=== PATIENT | female | born 1950 | race Caucasian/White ===

== ENCOUNTER 2023-10-16 09:00 | Inpatient (IN) | payer OTHER ==
[~2023-10-16] VITALS: Ht 165.1 cm; Wt 65.5 kg
[~2023-10-16 09:00] MED LIST: TRIATAB3 OR
[2023-10-16] MEDS ORDERED: MORPHINE SULF PF 5 MG/10 ML VIAL ONE (09:05)
[2023-10-16] MEDS: TRANEXAMIC ACID 20 ML ONE (09:06)
[2023-10-16] MEDS ORDERED: KETOROLAC TROMETH 30 MG/ML 1ML VIAL ONE (09:06)
[2023-10-16] MEDS: VANCOMYCIN HCL 1000 MG VL ONE (09:07)
[2023-10-16] MEDS: ceFAZolin 2 GM/D5W50ml 50 ML IV ONE (09:10)
[2023-10-16] MEDS: ACETAMINOPHEN IV 100 ML IV ONE (09:11)
[2023-10-16] MEDS: CELECOXIB 100 MG CAP ONE (09:15)
[2023-10-16] MEDS ORDERED: PROPOFOL 10 MG/ML 20 ML IV ONE ×2 (09:15→10:33)
[2023-10-16] MEDS ORDERED: DexAMETHasone SOD PHOS 10MG/1ML VIAL INJ ONE (09:15)
[2023-10-16] MEDS ORDERED: ONDANSETRON HCL 4 MG/2 ML VIAL ONE (09:15)
[2023-10-16] MEDS: PREGABALIN CAPSULE 75 MG CAP ONE (09:15)
[2023-10-16] MEDS ORDERED: LIDOCAINE 1% INJ PF 5ML AMP ONE (09:15)
[2023-10-16] MEDS ORDERED: GLYCOPYRROLATE 0.2 MG/ML 1ML VIAL ONE (09:15)
[2023-10-16] MEDS ORDERED: KETAMINE 50mg/ML 1ml syringe ONE (09:15)
[2023-10-16] MEDS: DexAMETHasone SOD PHOS 4 MG/1ML SDV INJ ONE (09:16)
[2023-10-16] MEDS: BUPIVACAINE 0.25% INJ 50ML VIAL ONE (10:08)
[2023-10-16 11:00] VITALS: O2SAT 100
[2023-10-16] MEDS ORDERED: NITROGLYCERIN 0.4 MG SL TAB SL PRN (11:00)
[2023-10-16] MEDS ORDERED: ceFAZolin 1GM/50ML 50 ML IV SCH (11:00)
[2023-10-16] MEDS ORDERED: MORPHINE SULFATE INJ 2 MG/ml SYRG IV PRN (11:00)
[2023-10-16] MEDS ORDERED: ONDANSETRON HCL 4 MG/2 ML VIAL IV PRN ×2 (11:00→11:15)
[2023-10-16] MEDS: LACTATED RINGER'S 1,000 ML IV SCH (11:00)
[2023-10-16] MEDS ORDERED: HYDROmorphone HCL 2 MG/ML VL/or syr IV PRN (11:15)
[2023-10-16] MEDS ORDERED: LABETALOL HCL 5 MG/ML 4ML SYRINGE IV PRN (11:15)
[2023-10-16] MEDS ORDERED: ePHEDrine SULFATE 50 MG/ML AMP IV PRN (11:15)
[2023-10-16] MEDS ORDERED: oxyCODONE HCL 5MG TAB PO PRN (11:15)
[2023-10-16] MEDS ORDERED: fentaNYL CITRATE 100 MCG/2 ML VL IV PRN (11:15)
[2023-10-16] MEDS ORDERED: NALOXONE HCL 0.4 MG/ML VIAL IV PRN (11:15)
[2023-10-16] MEDS ORDERED: hydrALAZINE HCL 20 MG/ML VL IV PRN (11:15)
[2023-10-16] MEDS ORDERED: FLUMAZENIL 0.1 MG/ML INJ 10ML MDV IV PRN (11:15)
[2023-10-16] MEDS: MEPERIDINE HCL (25 MG/ML) 1ML VIAL ONE (12:01)
[2023-10-16] MEDS: MEPERIDINE HCL (25 MG/ML) 1ML VIAL IV ONE (12:06)
[2023-10-16] MEDS: SODIUM CHLOR 0.9% PF (SALINE LOCK) 10ML VIAL/SYR IV SCH (14:00)
[2023-10-16] MEDS: ceFAZolin 1GM/50ML 50 ML IV SCH (15:30)
[2023-10-16 16:20] VITALS: BP 107/52; PULSE 81; PULSE 82; RESP 16; TEMP 98.7; O2SAT 96
[2023-10-16 17:00] VITALS: BP 107/52; PULSE 81; RESP 16; TEMP 97.8; O2SAT 96
[2023-10-16 20:00] VITALS: BP 94/44; PULSE 80; RESP 18; TEMP 97.8; O2SAT 95
[2023-10-16] MEDS: DOCUSATE SOD 100 MG CAP PO SCH (21:55)
[2023-10-16 22:00] VITALS: BP 94/44; PULSE 80; RESP 20; TEMP 97.8; O2SAT 94
[2023-10-17 05:00] VITALS: BP 98/49; PULSE 67; RESP 20; TEMP 97.4
[2023-10-17 09:00] VITALS: BP 93/46; PULSE 67; RESP 17; TEMP 98; O2SAT 99
[2023-10-17] MEDS ORDERED: TRIAMTERENE/HCTZ 37.5/25 MG CAP/TAB PO SCH (10:00)
[2023-10-17] MEDS: ENOXAPARIN SOD 40 MG/0.4 ML SYRINGE SC SCH (10:38)
[2023-10-17 13:00] VITALS: BP 96/49; PULSE 68; RESP 16; TEMP 97.9; O2SAT 98
[2023-10-17] MEDS: HYDROcodone-ACET 5/325MG TAB PO PRN (16:07)
[2023-10-17 20:00] VITALS: BP 98/37; PULSE 83; RESP 17; RESP 18; TEMP 98.2; O2SAT 96
[2023-10-17 22:00] VITALS: BP 99/37; PULSE 97; RESP 18; TEMP 98.2; O2SAT 95
[2023-10-18 05:00] VITALS: BP 119/50; PULSE 80; RESP 18; TEMP 97.9; O2SAT 97
[2023-10-18 09:30] VITALS: BP 119/57; PULSE 82; RESP 18; TEMP 98; O2SAT 96
[2023-10-18 13:30] VITALS: BP 112/53; PULSE 79; RESP 18; TEMP 98.1; O2SAT 98
[2023-10-18 16:39] VITALS: BP 130/58; PULSE 104; RESP 20; TEMP 97.8; O2SAT 98
[2023-10-18 20:00] VITALS: BP 127/62; PULSE 91; RESP 16; TEMP 98.8; O2SAT 94
[2023-10-18] MEDS: HYDROmorphone HCL 2 MG/ML VL/or syr IV PRN (20:51)
[2023-10-18 22:00] VITALS: BP 127/62; PULSE 91; RESP 16; TEMP 98.8; O2SAT 94
[2023-10-19 05:00] VITALS: BP 130/53; PULSE 84; RESP 18; TEMP 98.3; O2SAT 97
[2023-10-19 08:38] VITALS: BP 135/68; PULSE 92; RESP 17; TEMP 98.1; O2SAT 98
[2023-10-19 12:58] VITALS: BP 123/62; PULSE 94; RESP 17; TEMP 98.3; O2SAT 98
== END 2023-10-19 16:38 | disposition home health service (06) | DRG 470 ==
LOC: SUR 09:00 → OVERFLOW 10:48 → CENTRAL 15:45
PROVIDERS: ADMIT Orthopaedic Surgery Adult Reconstructive Orthopaedic Surgery; ATTEND Orthopaedic Surgery Adult Reconstructive Orthopaedic Surgery
PROC: 8E0YXBZ Computer Assisted Procedure of Lower Extremity (ICD-10-PCS; 2023-10-16)
PROC: 0SRB0JZ Replacement of Left Hip Joint with Synthetic Substitute, Open Approach (ICD-10-PCS; principal; 2023-10-16 09:29)
DX: M16.12 Unilateral primary osteoarthritis, left hip (principal); Z96.642 Presence of left artificial hip joint
CPT/HCPCS: 72170; 86850; 86900; 86901; 97110; 97116; 97163; 97530; G0378; J0131; J1100; J1885; J2405; J2704; J3490